=== PATIENT | female | born 1995 | race Caucasian/White ===

== ENCOUNTER 2023-07-15 08:53 | Outpatient (CLI) | payer OTHER, SELFPAY | END 2023-07-15 08:54 | disposition home or self-care (01) | LOC: LKVREF 08:54 | PROVIDERS: PCP Physician Assistant Medical; Visit Provider Physician Assistant Medical | DX: F90.9 Attention-deficit hyperactivity disorder, unspecified type (principal); Z79.899 Other long term (current) drug therapy | CPT/HCPCS: 80306 ==

== ENCOUNTER 2024-05-11 15:15 | Outpatient (CLI) | payer OTHER, SELFPAY | END 2024-05-11 15:16 | disposition home or self-care (01) | PROVIDERS: PCP Physician Assistant Medical; Visit Provider Physician Assistant Medical | DX: R03.0 Elevated blood-pressure reading, without diagnosis of hypertension (principal); R00.0 Tachycardia, unspecified | CPT/HCPCS: 82088; 84244; 84443; 87086 ==

== ENCOUNTER 2024-12-14 09:01 | Outpatient (CLI) | payer OTHER, SELFPAY | END 2024-12-14 09:02 | disposition home or self-care (01) | PROVIDERS: PCP Physician Assistant Medical; Visit Provider Physician Assistant Medical | DX: L65.9 Nonscarring hair loss, unspecified (principal); F90.9 Attention-deficit hyperactivity disorder, unspecified type; I10 Essential (primary) hypertension | CPT/HCPCS: 80306; 82306; 82607; 82670; 82728; 83001; 83002; 83498; 84146; 84270; 84402; 84403; 84443 ==